=== PATIENT | male | born 1985 | race Caucasian/White ===

== ENCOUNTER 2018-01-06 11:47 | Emergency (ER) | payer SELFPAY ==
[2018-01-06 11:59] VITALS: BP 136/80
[2018-01-06] MEDS ORDERED: NORMAL SALINE 1000 ML 1,000 ML IV ONE (12:24)
[2018-01-06] MEDS ORDERED: VANCOMYCIN HCL INJ 1000 MG VIAL IV ONE (12:25)
--- NOTE | 2018-01-06 12:26 | ER Document Report ---
ED Medical Screen (RME) - General Chief Complaint: Skin Problem Stated Complaint: RASH/SKIN PROBLEM Time Seen by Provider: 01/06/18 12:23 Notes: Patient states that he has a history of IV drug abuse and methamphetamine abuse. However he states that he has not used any in 3 years. He states he just got out of [facility] 1 month ago. He states he does have a history of MRSA. He states recently he had a tender red area on his lower leg. Patient states he was diagnosed at an outside hospital with cellulitis. He states he is prescribed Keflex and he is taken the full dose but the rash has gotten worse. He states is now on his face and bilateral upper extremities. TRAVEL OUTSIDE OF THE [place] IN LAST 30 DAYS: No - Related Data Allergies/Adverse Reactions: Penicillins Allergy (Verified 08/08/16 21:38) Past Medical History - Social History Chew tobacco use (# tins/day): No Frequency of alcohol use: None Drug Abuse: Methamphetamine Pulmonary Medical History: Reports: Hx Asthma, Hx Bronchitis, Hx Pneumonia Renal/ Medical History: Denies: Hx Peritoneal Dialysis Past Surgical History: Reports: Hx Orthopedic Surgery - right hand, back, neck - Immunizations Hx Diphtheria, Pertussis, Tetanus Vaccination: Yes - unsure Physical Exam - Vital signs Vitals: Temp Pulse Resp BP Pulse Ox 98.1 F 91 16 136/80 H 98 01/06/18 11:58 01/06/18 11:58 01/06/18 11:58 01/06/18 11:58 01/06/18 11:58 Course - Vital Signs Vital signs: Temp Pulse Resp BP Pulse Ox 98.1 F 91 16 136/80 H 98 01/06/18 11:58 01/06/18 11:58 01/06/18 11:58 01/06/18 11:58 01/06/18 11:58
== END 2018-01-06 13:28 | disposition left against medical advice (07) ==
LOC: ER 11:47
DX: L03.119 Cellulitis of unspecified part of limb (principal); J45.909 Unspecified asthma, uncomplicated; Z88.0 Allergy status to penicillin; Z53.20 Procedure and treatment not carried out because of patient's decision for unspecified reasons
CPT/HCPCS: 36415; 99281

== ENCOUNTER 2018-07-17 16:15 | Emergency (ER) | payer SELFPAY ==
[2018-07-17] MEDS ORDERED: BUPIVACAINE HCL 0.5 % INJ/PF 30 ML SDV INJ ONE (17:01)
[2018-07-17] MEDS ORDERED: LIDOCAINE 1% INJ (10 MG/ML) 10 ML MDV INJ ONE (17:01)
--- NOTE | 2018-07-17 17:07 | ER Document Report ---
ED Oral Problem - General Chief Complaint: Toothache Stated Complaint: TOOTH PAIN Time Seen by Provider: 07/17/18 16:50 Mode of Arrival: Ambulatory Information source: Patient Notes: Patient is a 33-year-old male comes emergency room complaining of a dental pain that is located in the left upper mouth. States his been going on for over a month getting bad the last 20 days and worse the last 24 hours. States that anything that he eats hot or cold sets it off and decrease the amount of pain. Patient denies any other medical history. TRAVEL OUTSIDE OF THE [place] IN LAST 30 DAYS: No - HPI Patient complains to provider of: Jaw pain, Swelling of face Onset: Other - 1 monthpast 20 days/worse past 2 days Onset: Gradual Quality of pain: Sharp, Stabbing, Throbbing Severity: Severe Pain Level: 4 Context: Fractured tooth Swollen jaw/face: Mild Worsened by: Other - Hot and cold Relieved by: Nothing Similar symptoms previously: Yes Recently seen / treated by doctor/dentist: No - Related Data Allergies/Adverse Reactions: Penicillins Allergy (Verified 08/08/16 21:38) Past Medical History - General Information source: Patient - Social History Smoking Status: Current Every Day Smoker Cigarette use (# per day): Yes - 1 pack a day Chew tobacco use (# tins/day): No Smoking Education Provided: Yes Frequency of alcohol use: None Drug Abuse: None Family History: Reviewed & Not Pertinent Patient has suicidal ideation: No Patient has homicidal ideation: No Pulmonary Medical History: Reports: Hx Asthma, Hx Bronchitis, Hx Pneumonia Renal/ Medical History: Denies: Hx Peritoneal Dialysis Past Surgical History: Reports: Hx Orthopedic Surgery - right hand, back, neck - Immunizations Hx Diphtheria, Pertussis, Tetanus Vaccination: Yes - unsure Review of Systems - Review of Systems Constitutional: No symptoms reported EENT: Dental problem Cardiovascular: No symptoms reported Respiratory: No symptoms reported Gastrointestinal: No symptoms reported Genitourinary: No symptoms reported Male Genitourinary: No symptoms reported Musculoskeletal: No symptoms reported Skin: No symptoms reported Hematologic/Lymphatic: No symptoms reported Neurological/Psychological: No symptoms reported -: Yes All other systems reviewed and negative Physical Exam - Vital signs Vitals: Temp Pulse Resp BP Pulse Ox 98.4 F 74 18 170/113 H 100 07/17/18 16:32 07/17/18 16:32 07/17/18 16:32 07/17/18 16:32 07/17/18 16:32 Interpretation: Normal, Hypertensive - Notes Notes: Patient is a well-nourished well-developed 83-year-old male who is in no apparent distress but obvious pain and discomfort. - General General appearance: Alert In distress: None - HEENT Head: Normocephalic, Tenderness, Other - Physical inspection patient's facial features show there is a moderate amount of swelling to the left upper lip area to the left side.. No: Atraumatic Nasal: Normal Mouth/Lips: Caries, Dental fracture, Other - Physical examination patient's oral cavity shows dental neglect for several years most likely although there are one in question today tooth #12 with a portion of the enamel broken off and decayed noted to the root. The gumline is very erythematous and tender there is some apparent exudate coming from around the gum tooth line.. No: Normal, Angioedema Pharynx: Normal. No: Blood in hypopharynx, Erythema, Exudate, Peritonsillar abscess, Post nasal drainage, Retropharyngeal abscess, Tonsillar hypertrophy, Uvular edema, Potential airway comprom. Neck: Normal, Supple. No: Anterior cervical chain, Posterior cervical chain, Lymphadenopathy, Meningismus - Respiratory Respiratory status: No respiratory distress Chest status: Nontender Breath sounds: Normal. No: Rales, Rhonchi, Stridor, Wheezing Chest palpation: Normal - Cardiovascular Rhythm: Regular Heart sounds: Normal auscultation Murmur: No - Neurological Neuro grossly intact: Yes Cognition: Normal Orientation: AAOx4 [place] Coma Scale Eye Opening: Spontaneous Aric Coma Scale Verbal: Oriented Aric Coma Scale Motor: Obeys Commands Aric Coma Scale Total: 15 Speech: Normal - Skin Skin Temperature: Warm Skin Moisture: Dry Skin Color: Normal Course - Re-evaluation Re-evalutation: 07/17/18 17:26 Dental block procedure used 1 mL of 1% lidocaine and 1 mL of 0.5% Sensorcaine I injected that into the anterior dome lip line anterior to the 12th tooth. Patient got little relief from the initial injection I repeated with the same amount more anterior and patient got only minimal relief. I explained to patient that with the amount of decay he has in the exposure of his root that he might get some relief if he uses some dental fix to cover the area from the elements. Patient states the only thing that relieves his discomfort and pain is ice water. I am putting him on clindamycin and I will give him a little pain medication for a day or so but have informed him he needs to see a dentist. - Vital Signs Vital signs: Temp Pulse Resp BP Pulse Ox 98.4 F 74 18 170/113 H 100 07/17/18 16:32 07/17/18 16:32 07/17/18 16:32 07/17/18 16:32 07/17/18 16:32 Discharge - Discharge Clinical Impression: Pain, dental Fracture, tooth Qualifiers: Encounter type: initial encounter Fracture type: closed Qualified Code(s): S02.5XXA - Fracture of tooth (traumatic), initial encounter for closed fracture Condition: Stable Disposition: HOME, SELF-CARE Instructions: Toothache ([facility]), Oral Narcotic Medication ([facility]), Clindamycin ([facility] ), [facility] Additional Instructions: Home and rest. Medication as prescribed. As of indicated to you the antibiotic is more broad-spectrum and will probably cause more for Insurance coverage great if not use the good Rx card which is cheapest up at [facility] for $ 25. I have given you the number to [facility] may build to help you with the dental problem. Again this is something that we cannot fix in the emergency room you must see a dentist for total relief of this problem. Return to ER if you have any increase in swelling or pain or fever. Prescriptions: Clindamycin HCl 300 mg PO Q6 #40 capsule Hydrocodone/Acetaminophen [[place] 5-325 mg Tablet] 1 tab PO Q4 PRN #12 tablet PRN Reason: Ibuprofen 800 mg PO TID #30 tablet Forms: Elevated Blood Pressure, Smoking Cessation Education
[2018-07-17 18:23] VITALS: BP 153/90
== END 2018-07-17 17:52 | disposition home or self-care (01) ==
LOC: ER 16:15
DX: S02.5XXA Fracture of tooth (traumatic), initial encounter for closed fracture (principal); X58.XXXA Exposure to other specified factors, initial encounter; R68.84 Jaw pain; F17.210 Nicotine dependence, cigarettes, uncomplicated; Z88.0 Allergy status to penicillin
CPT/HCPCS: 99283; 64400; J3490

== ENCOUNTER 2018-10-20 20:50 | Emergency (ER) | payer SELFPAY | END 2018-10-20 21:20 | disposition left against medical advice (07) | LOC: ER 20:50 | DX: Z53.21 Procedure and treatment not carried out due to patient leaving prior to being seen by health care provider (principal) ==

== ENCOUNTER 2018-10-23 17:36 | Emergency (ER) | payer BC ==
[2018-10-23 17:45] VITALS: BP 130/88
[2018-10-23] MEDS ORDERED: LIDOCAINE 2% VISCOUS SOLN 20 ML UDCUP PO ONE (17:54)
[2018-10-23] MEDS ORDERED: HYDROCODONE/ACETAMINOPHEN 5-325 MG TABLET PO ONE (17:54)
--- NOTE | 2018-10-23 18:07 | ER Document Report ---
HPI - HPI Time Seen by Provider: 10/23/18 17:47 Pain Level: 5 Notes: Patient is an otherwise healthy 33-year-old male who presents with chief complaint of dental pain at tooth #14. He states the tooth broke approximately 6 weeks ago. He reports that he just got dental insurance and has an appointment with a dentist on Thursday. He was seen for this about 8 weeks ago here in the same emergency department. He reports he took all the clindamycin as prescribed. Past Medical History - General Information source: Patient - Social History Smoking Status: Never Smoker Family History: Reviewed & Not Pertinent Pulmonary Medical History: Reports: Hx Asthma, Hx Bronchitis, Hx Pneumonia Renal/ Medical History: Denies: Hx Peritoneal Dialysis Past Surgical History: Reports: Hx Orthopedic Surgery - right hand, back, neck - Immunizations Hx Diphtheria, Pertussis, Tetanus Vaccination: Yes - unsure Vertical Provider Document - CONSTITUTIONAL Notes: PHYSICAL EXAMINATION: GENERAL: Well-appearing, well-nourished and in no acute distress. HEAD: Atraumatic, normocephalic. EYES: Pupils equal round extraocular movements intact, conjunctiva are normal. ENT: Nares patent, poor dentition noted, fractured tooth at tooth #14. No surrounding erythema, no drainable abscess. LUNGS: No respiratory distress Musculoskeletal: Normal range of motion NEUROLOGICAL: Normal speech, normal gait. PSYCH: Normal mood, normal affect. SKIN: Warm, Dry, normal turgor, no rashes or lesions noted. - INFECTION CONTROL TRAVEL OUTSIDE OF THE [place] IN LAST 30 DAYS: No Course - Re-evaluation Re-evalutation: Patient with poor dentition, no drainable abscess identified. Patient will be given prescription for clindamycin, will be given 1 dose of hydrocodone here in the emergency department. Patient reports that he completed his course of clindamycin that was prescribed to him in back in June however according to the prescription database in his chart he only filled the prescription for hydrocodone and did not have the clindamycin filled. - Vital Signs Vital signs: Temp Pulse Resp BP Pulse Ox 99.0 F 97 14 130/88 H 98 10/23/18 17:43 10/23/18 17:43 10/23/18 17:43 10/23/18 17:43 10/23/18 17:43 Discharge - Discharge Clinical Impression: Pain, dental Condition: Stable Disposition: HOME, SELF-CARE Instructions: Clindamycin (OM), Toothache (OM) Additional Instructions: Please take antibiotics as prescribed. Continue to take ibuprofen 600 mg every 6 hours for pain. Use the lidocaine gel that we have provided as needed directly to the area. Please keep the dentist appointment you have scheduled for Thursday. If you are unable to see your regular dentist you may call the [facility] dental clinic at [phone]. They do extractions only. Prescriptions: Clindamycin HCl 300 mg PO TID #30 capsule
== END 2018-10-23 18:10 | disposition home or self-care (01) ==
LOC: ER 17:36
DX: K08.89 Other specified disorders of teeth and supporting structures (principal); J45.909 Unspecified asthma, uncomplicated
CPT/HCPCS: 99282; J3490

== ENCOUNTER 2020-02-08 12:48 | Emergency (ER) | payer SELFPAY ==
[2020-02-08] MEDS ORDERED: IBUPROFEN 600 MG TABLET PO ONE (13:45)
--- NOTE | 2020-02-08 13:45 | ER Document Report ---
ED Respiratory Problem - General Chief Complaint: Cough Stated Complaint: COUGH Time Seen by Provider: 02/08/20 12:57 Primary Care Provider: RYDER HOLMAN MD [ACTIVE STAFF] - Follow up as needed Notes: CHIEF COMPLAINT: Cough and body ache for 3 days HPI: 35-year-old male presenting to the emergency department complaining of cough and body aches for 3 days. Subjective fevers at home. Patient does smoke daily. Denies recent travel or definitive contact with COVID positive patients. Does report some shortness of breath and discomfort with breathing ROS: See HPI - all other systems were reviewed and are otherwise negative Constitutional: no fever Eyes: no drainage, no blurred vision ENT: no runny nose, no sore throat Cardiovascular: Positive chest pain with cough Resp: + SOB, + cough GI: no vomiting, no diarrhea, no abdominal pain : no dysuria Integumentary: no rash Allergy: no hives Musculoskeletal: no extremity pain or swelling Neurological: no numbness/tingling, no weakness MEDICATIONS: I agree with the patient medications as charted by the RN. ALLERGIES: I agree with the allergies as charted by the RN. PAST MEDICAL HISTORY/PAST SURGICAL HISTORY: Reviewed and agree as charted by RN. SOCIAL HISTORY: Reviewed and agree as charted by RN. FAMILY HISTORY: No significant familial comorbid conditions directly related to patient complaint EXAM: Reviewed vital signs as charted by RN. CONSTITUTIONAL: Alert and oriented and responds appropriately to questions. Well-appearing; well-nourished, mild distress secondary to body ache HEAD: Normocephalic; atraumatic EYES: PERRL; Conjunctivae clear, sclerae non-icteric ENT: normal nose; no rhinorrhea; moist mucous membranes; pharynx without lesions noted, no uvula edema or deviation, no tonsillar hypertrophy, phonation normal NECK: Supple without meningismus; non-tender; no cervical lymphadenopathy, no masses CARD: RRR; no murmurs, no clicks, no rubs, no gallops; symmetric distal pulses RESP: Normal chest excursion without splinting or tachypnea; breath sounds clear and equal bilaterally; no wheezes, no rhonchi, no rales, pulse oximetry 96% on room air not hypoxic ABD/GI: Normal bowel sounds; non-distended; soft, non-tender, no rebound, no guarding; no palpable organomegaly or masses. BACK: The back appears normal and is non-tender to palpation, there is no CVA tenderness EXT: Normal ROM in all joints; non-tender to palpation; no cyanosis, no effusions, no edema SKIN: Normal color for age and race; warm; dry; good turgor; no acute lesions noted NEURO: Moves all extremities equally; Motor and sensory function intact PSYCH: The patient's mood and manner are appropriate. Grooming and personal hygiene are appropriate. MDM: 35-year-old male who smokes with cough, chest pain with cough, shortness of breath complaint for 3 days. No definitive COVID contacts. Will obtain flu swab, chest x-ray for infiltrate, will obtain COVID testing TRAVEL OUTSIDE OF THE [place] IN LAST 30 DAYS: No - Related Data Allergies/Adverse Reactions: Penicillins Allergy (Verified 08/08/16 21:38) Past Medical History - Social History Smoking Status: Unknown if Ever Smoked Family History: Reviewed & Not Pertinent Patient has homicidal ideation: No Pulmonary Medical History: Reports: Hx Asthma, Hx Bronchitis, Hx Pneumonia Renal/ Medical History: Denies: Hx Peritoneal Dialysis Past Surgical History: Reports: Hx Orthopedic Surgery - right hand, back, neck - Immunizations Hx Diphtheria, Pertussis, Tetanus Vaccination: Yes - unsure Physical Exam - Vital signs Vitals: Temp Pulse Resp BP Pulse Ox 98.9 F 103 H 18 134/91 H 96 02/08/20 13:01 02/08/20 13:01 02/08/20 13:01 02/08/20 13:01 02/08/20 13:01 Course - Re-evaluation Re-evalutation: 02/08/20 15:12 Patient chest x-ray does not show evidence of infection or pneumonia. Patient flu swab was negative. He may have a viral etiology he may have a lower respiratory infection given his smoking history. He does have a COVID-[address] patient on inhaler at home to help with shortness of breath, course of antibiotics given the possible lower respiratory infection, follow-up PCP he is considered a person under investigation at this time he is aware of this will quarantine at home for 14 days or until he has a negative test result - Vital Signs Vital signs: Temp Pulse Resp BP Pulse Ox 98.9 F 103 H 18 134/91 H 96 02/08/20 13:21 02/08/20 13:01 02/08/20 13:01 02/08/20 13:01 02/08/20 13:01 Discharge - Discharge Clinical Impression: Lower resp. tract infection, Person under investigation for COVID-19 Condition: Stable Disposition: HOME, SELF-CARE Additional Instructions: 1. take the medications as prescribed 2. if you were prescribed an Albuterol inhaler, use it as instructed, 2 puffs every 4 hours as needed for cough/wheezing 3. call your primary care provider as soon as possible to schedule recheck appt. in the office. 4. return to the ED for any worsening condition, shortness of breath or continued fever that does not resolve with Motrin/Tylenol Prescriptions: Benzonatate [Tessalon Perles 100 mg Capsule] 100 mg PO Q8HP PRN #40 capsule PRN Reason: Albuterol Sulfate [Proair HFA Inhalation Aerosol 8.5 gm MDI] 2 puff IH Q4H PRN #1 mdi PRN Reason: Azithromycin [Zithromax 250 mg Tablet] 250 mg PO ASDIR PRN #6 tablet PRN Reason: Referrals: RYDER HOLMAN MD [ACTIVE STAFF] - Follow up as needed
--- NOTE | 2020-02-08 14:14 | RADIOLOGY REPORT (SQ) ---
EXAM DESCRIPTION: CHEST SINGLE VIEW IMAGES COMPLETED DATE/TIME: 02/08/2020 2:02 pm REASON FOR STUDY: cough COMPARISON: PA and lateral views of the chest from 12/11/2011. EXAM PARAMETERS: NUMBER OF VIEWS: One view. TECHNIQUE: An AP view of the chest was obtained. RADIATION DOSE: NA LIMITATIONS: None. FINDINGS: LUNGS AND PLEURA: No consolidation, pleural effusion or pneumothorax. MEDIASTINUM AND HILAR STRUCTURES: No mediastinal or hilar contour abnormality. HEART AND VASCULAR STRUCTURES: The cardiac silhouette and pulmonary vasculature are within normal gotti its. BONES: No acute findings. HARDWARE: ACDF hardware in the cervical spine. OTHER: No other finding. IMPRESSION: No acute cardiopulmonary process. TECHNICAL DOCUMENTATION: JOB ID: [id number] 2010 [employer]- All Rights Reserved Reading location - IP/workstation name: [email or web address]
[2020-02-08 14:35] LABS: A TYPE INFLUENZA AG NEGATIVE (NEGATIVE); B INFLUENZA AG NEGATIVE (NEGATIVE)
[2020-02-08 16:12] VITALS: BP 124/79
== END 2020-02-08 15:45 | disposition home or self-care (01) ==
LOC: ER 12:48
DX: J22 Unspecified acute lower respiratory infection (principal); J45.909 Unspecified asthma, uncomplicated; Z20.828 Contact with and (suspected) exposure to other viral communicable diseases; R05 Cough; R07.9 Chest pain, unspecified; R06.02 Shortness of breath; F17.200 Nicotine dependence, unspecified, uncomplicated; Z87.01 Personal history of pneumonia (recurrent); Z88.0 Allergy status to penicillin
CPT/HCPCS: 71045; 87635; 87804; 99283

== ENCOUNTER 2020-05-24 22:14 | Emergency (ER) | payer SELFPAY ==
[2020-05-24] MEDS ORDERED: NORMAL SALINE 1000 ML 1,000 ML IV ONE (22:22)
[2020-05-24] MEDS ORDERED: LORAZEPAM INJ 2 MG/1 ML VIAL IV ONE (22:23)
[2020-05-24 22:30] LABS: ABSOLUTE BASOPHILS # (AUTO) 0.1 10^3/uL (0.0-0.2); ABSOLUTE EOSINOPHILS # (AUTO) 0.2 10^3/uL (0.0-0.6); ABSOLUTE LYMPHOCYTES (AUTO) 2.3 10^3/uL (0.5-4.7); ABSOLUTE MONOCYTES (AUTO) 0.9 10^3/uL (0.1-1.4); ABSOLUTE NEUT (AUTO) 7.7 10^3/uL (1.7-8.2); BASOPHILS % (AUTO) 0.7 % (0-2); EOSINOPHILS % (AUTO) 1.7 % (0-6); HEMATOCRIT 34.3 % (37.9-51.0); HEMOGLOBIN 11.6 g/dL (13.5-17.0); LYMPHOCYTES % (AUTO) 20.4 % (13-45); MEAN CORPUSCULAR HEMOGLOBIN 28.4 pg (27.0-33.4); MEAN CORPUSCULAR HGB CONC 33.8 g/dL (32.0-36.0); MEAN CORPUSCULAR VOLUME 84 fl (80-97); MONOCYTES % (AUTO) 7.8 % (3-13); PLATELET COUNT 321 10^3/uL (150-450); RED BLOOD COUNT 4.09 10^6/uL (4.35-5.55); RED CELL DISTRIBUTION WIDTH 14.6 % (11.5-14.0); SEGMENTED NEUTROPHILS % (AUTO) 69.4 % (42-78); TOTAL CELLS COUNTED % (AUTO) 100 %
--- NOTE | 2020-05-24 22:42 | ER Document Report ---
Entered by DAGOBERTO SCHMITT SCRIBE 05/24/20 [id number] Acting as scribe for:ALVINO NATH, DO ED Substance Abuse / Acc. OD - General Stated Complaint: POSS OVERDOSE Mode of Arrival: Medic Information source: Emergency Med Personnel Notes: This 35 year old male patient brought in by EMS presents to the ED today with complaints of possible overdose that occurred just prior to arrival. EMS states that they were called out by the patient's friends for unconsciousness; however, when they arrived on the scene, the patient was being held down by ANANDA because he was combative and agitated. According to EMS, patient was found in his car surrounded by heroin, cocaine, crack, and an "assortment of pills." Patient reportedly received x2 IN Narcan via his friends prior to ANANDA or EMS arrival. EMS reports that the patient was being noncompliant, so they administered 5 mg Versed IM and 280 mg Ketamine IM without any change in his behavior. Patient also received 2 mg Ativan IV and 1 L bolus of LR. Patient was placed in restra ints. Patient's pupils were noted to be dilated and sluggish and he also had abrasions to his elbow, forehead, and left scapula. TRAVEL OUTSIDE OF THE [place] IN LAST 30 DAYS: No - Related Data Allergies/Adverse Reactions: Penicillins Allergy (Verified 08/08/16 21:38) Past Medical History - General Information source: [facility] Records - Social History Smoking Status: Unknown if Ever Smoked Smoking Education Provided: No Family History: Reviewed & Not Pertinent Pulmonary Medical History: Reports: Hx Asthma, Hx Bronchitis, Hx Pneumonia Past Surgical History: Reports: Hx Orthopedic Surgery - right hand, back, neck - Immunizations Hx Diphtheria, Pertussis, Tetanus Vaccination: Yes - unsure Review of Systems - Review of Systems -: Yes ROS unobtainable due to patient's medical condition Physical Exam - Vital signs Vitals: Resp 29 H 05/24/20 22:15 - General General appearance: Combative In distress: None - HEENT Pupils: Dilated - 8 mm and sluggish - Respiratory Respiratory status: No respiratory distress Chest status: Nontender Breath sounds: Normal Chest palpation: Normal - Cardiovascular Rhythm: Regular, Tachycardia Heart sounds: Normal auscultation Murmur: No Friction rub: No Gallop: None auscultated - Abdominal Inspection: Normal Distension: No distension Bowel sounds: Normal Tenderness: Nontender - Abdomen soft Organomegaly: No organomegaly - Back Back: Normal, Nontender - Extremities General upper extremity: Normal inspection General lower extremity: Normal inspection. No: Edema - Psychological Associated symptoms: Other - Unable to assess - Skin Skin Temperature: Warm Skin Moisture: Dry - lesions on arms consistent with IVDA. Course - Re-evaluation Re-evalutation: 05/24/20 22:39 MDM 35 year old male apparently doing recreational drugs - heroin, crack and others and then acting erratically and agitated and combative. Friends administered Narcan and called EMS and Law enforcement. 05/25/20 00:40 Pts pupils have changes from perhaps 8 mm and slowly reactive to 4 mm and more reactive. He is still sedated. Feel this presentation is consistent with a misadventure with illicit drugs. The pt reportedly is not suicidal. This was verified thru the EMS staff that transported him here. Plan at this point is to watch and monitor and after he wakes he can likely be discharged with encouragement to stop drug use and certainly return here for thoughts of self harm or other problems or concerns. 05/25/20 00:[address] Parmar at 0100. - Vital Signs Vital signs: Temp Pulse Resp BP Pulse Ox 26 H 139/125 H 93 05/24/20 23:24 05/24/20 23:24 05/24/20 23:24 - Laboratory Result Diagrams: 05/24/20 22:22 05/24/20 22:22 Laboratory results interpreted by me: 05/24/20 05/24/20 22:22 22:22 WBC 11.0 H RBC 4.09 L Hgb 11.6 L Hct 34.3 L RDW 14.6 H Salicylates < 1.0 L Acetaminophen < 10 L - EKG Interpretation by Vt EKG shows normal: Sinus rhythm Rate: Tachycardia Rhythm: NSR - Sinus Tachy Nl Holt RBBB no st elevation or depression my intepretation. Discharge - Discharge Clinical Impression: Drug abuse, Psychomotor agitation Condition: Stable Disposition: HOME, SELF-CARE Instructions: Cocaine Abuse (OM), Drug Effects (OM), Family Physicians / Practices, Intravenous (IV) Fluids ([facility]) Additional Instructions: If you have thoughts of self harm please call 911 or return here. Also return here for any problems or any concerns including but not limited to chest pain or fever or shortness of breath. Avoid using any illicit drugs including cocaine and heroin. I personally performed the services described in the documentation, reviewed and edited the documentation which was dictated to the scribe in my presence, and it accurately records my words and actions.
[2020-05-24 22:46] LABS: ALBUMIN 4.3 g/dL (3.5-5.0); ALKALINE PHOSPHATASE 69 U/L (38-126); ANION GAP 8 (5-19); ASPARTATE AMINO TRANSFERASE 30 U/L (17-59); BILIRUBIN,DIRECT 0.2 mg/dL (0.0-0.4); BILIRUBIN,TOTAL 0.4 mg/dL (0.2-1.3); BLOOD UREA NITROGEN 16 mg/dL (7-20); CALCIUM 9.3 mg/dL (8.4-10.2); CARBON DIOXIDE 29 mmol/L (22-30); CHLORIDE 103 mmol/L (98-107); CREATINE KINASE 136 U/L (55-170); GLUCOSE 99 mg/dL (75-110); POTASSIUM 4.2 mmol/L (3.6-5.0); TOTAL PROTEIN 8.2 g/dL (6.3-8.2)
[2020-05-24 22:57] LABS: ACETAMINOPHEN < 10 ug/mL (10-30); ALCOHOL < 10 mg/dL (NONE DETECTED); SALICYLATE < 1.0 mg/dL (2.0-20.0)
--- NOTE | 2020-05-24 23:26 | RADIOLOGY REPORT (SQ) ---
CLINICAL INDICATION: htn. TECHNIQUE: A single portable AP view was obtained of the chest at 2310 hours. COMPARISON: February 08, 2020. FINDINGS: The cardiomediastinal silhouette appears top normal. The lungs are grossly clear. No evidence of effusion or pneumothorax. The visualized bones are unremarkable. Postsurgical change cervical spine IMPRESSION: No evidence of active intrathoracic disease.
--- NOTE | 2020-05-24 23:48 | RADIOLOGY REPORT (SQ) ---
CT HEAD WITHOUT IV CONTRAST HISTORY: OD ams. combative and agitated.. COMPARISON: None. TECHNIQUE: CT scan of the brain was performed without IV contrast. This exam was performed according to our departmental dose-optimization program, which includes automated exposure control, adjustment of the mA and/or kV according to patient size and/or use of iterative reconstruction technique. FINDINGS: The ventricles, cisterns, and sulci are age-appropriate. No evidence of acute infarction, intracranial hemorrhage, extra-axial fluid collection, or midline shift. No air-fluid levels are seen in the paranasal sinuses to suggest acute sinusitis. No depressed skull fracture. IMPRESSION: No acute intracranial findings.
--- NOTE | 2020-05-24 23:49 | RADIOLOGY REPORT (SQ) ---
CT LUMBAR SPINE WITHOUT IV CONTRAST HISTORY: OD, fall. combative and agitated.. COMPARISON: None. TECHNIQUE: CT scan of the lumbar spine was performed without IV contrast. This exam was performed according to our departmental dose-optimization program, which includes automated exposure control, adjustment of the mA and/or kV according to patient size and/or use of iterative reconstruction technique. FINDINGS: Study limited by motion artifact. No acute compression fracture is seen. The lumbar alignment is maintained. The disc spaces are preserved. No advanced canal stenosis is identified. The sacroiliac joints are intact. IMPRESSION: No acute fracture or subluxation of the lumbar spine.
--- NOTE | 2020-05-25 07:30 | ER Document Report ---
Doctor's Note Notes: 05/25/20 07:29 Patient was signed out to me about 6:15 AM this morning. He has been here all night after being resuscitated with Narcan in the field and found with multiple substances in the vehicle with him. He was apparently quite combative with law enforcement and EMS used Versed, ketamine, then Ativan to control him. He is now sleeping it off. Upon reviewing his lab work, I see that he has not provided a urine specimen all night long, so the urine drug screen did not get done. He also did not get a CK checked, so I am going to add CK to his lab work and order IV fluids to hydrate him to ensure adequate urine output. 05/25/20 12:38 Urine drug screen is positive for methamphetamine, opiates, and benzodiazepines. EMS did give the patient benzos.
[2020-05-25] MEDS: RINGERS SOLUTION,LACTATED 1,000 ML IV PRN ×2 (07:41→08:37)
[2020-05-25 10:56] LABS: APPEARANCE,URINE CLEAR; BILIRUBIN,URINE NEGATIVE (NEGATIVE); COLOR,URINE YELLOW; GLUCOSE, URINE NEGATIVE (NEGATIVE); KETONES,URINE NEGATIVE (NEGATIVE); LEUKOCYTE ESTERASE,URINE TRACE (NEGATIVE); NITRITE,URINE NEGATIVE (NEGATIVE); PROTEIN,URINE NEGATIVE (NEGATIVE); URINE BARBITURATES SCREEN NEGATIVE; URINE COCAINE SCREEN NEGATIVE; URINE MARIJUANA (THC) SCREEN NEGATIVE; URINE METHADONE SCREEN NEGATIVE; URINE PHENCYCLIDINE SCREEN NEGATIVE; URINE SPECIFIC GRAVITY 1.017; UROBILINOGEN,URINE NEGATIVE mg/dL (<2.0)
[2020-05-25 11:07] LABS: URINE BENZODIAZEPINES SCREEN UNCONFIRMED POSITIVE
--- NOTE | 2020-05-25 11:20 | EKG REPORT ---
SEVERITY:- BORDERLINE ECG - SINUS TACHYCARDIA BORDERLINE PROLONGED QT INTERVAL : Confirmed by: Tonya Riley MD 25-May-2020 11:19:55
[2020-05-25 13:05] VITALS: BP 134/92
== END 2020-05-25 13:08 | disposition home or self-care (01) ==
LOC: ER 22:14
DX: F15.10 Other stimulant abuse, uncomplicated (principal); F11.10 Opioid abuse, uncomplicated; S50.319A Abrasion of unspecified elbow, initial encounter; S00.81XA Abrasion of other part of head, initial encounter; S40.212A Abrasion of left shoulder, initial encounter; X58.XXXA Exposure to other specified factors, initial encounter; Z88.0 Allergy status to penicillin; J45.909 Unspecified asthma, uncomplicated; R00.0 Tachycardia, unspecified; Z78.1 Physical restraint status
CPT/HCPCS: 93005; 99285; 96361; 96374; 36415; 80307 ×4; 82550; 83735; 85025; 80053; 81001; 84484; 71045; 70450; 72131; 93010; J2060; J7030; J7120